=== PATIENT | female | born 1985 | race African-American/Black ===

== ENCOUNTER 2021-10-03 10:48 | Outpatient (CLI) | payer OTHER | END 2021-10-03 10:49 | disposition home or self-care (01) | LOC: BICULT 10:48 | PROVIDERS: ATTEND Nurse Practitioner Women's Health | DX: T83.32XA Displacement of intrauterine contraceptive device, initial encounter (principal); D25.9 Leiomyoma of uterus, unspecified; N85.2 Hypertrophy of uterus; R93.89 Abnormal findings on diagnostic imaging of other specified body structures | CPT/HCPCS: 76856; 93976 ==